=== PATIENT | female | born 1960 | race Caucasian/White ===

== ENCOUNTER 2020-03-09 01:13 | Emergency (ER) | payer SELFPAY ==
[~2020-03-09] VITALS: Ht 160 cm; Wt 63.5 kg
[2020-03-09 01:14] VITALS: BP 156/83
--- NOTE | 2020-03-09 01:14 | NUR ---
PT AMBUALTED TO [facility] WITH STEADY GAIT. PT ESCOTRED BY [facility].
--- NOTE | 2020-03-09 01:29 | NUR ---
NO NURSING INTERVENTION DONE DURING VISIT.
--- NOTE | 2020-03-09 01:29 | NUR ---
PATIENT BIB [facility]. PATIENT EXAMINED BY . PATIENT MEDICALLY CLEARED AND RELEASED IN CUSTODY IN STABLE CONDITION. ORIGINAL PRE-BOOK FORM GIVEN TO OFFICER [facility] #[id number].
--- NOTE | 2020-03-09 01:30 | NUR ---
Patient discharged with v/s stable. Written and verbal after care instructions given and explained. Patient verbalized understanding. Police with in custody. All questions addressed prior to discharge. Advised to follow up with [facility]D.
[2020-03-09 01:39] VITALS: BP 156/83
== END 2020-03-09 01:30 ==
LOC: MED 01:13
DX: Z02.89 Encounter for other administrative examinations (principal); V89.2XXA Person injured in unspecified motor-vehicle accident, traffic, initial encounter; Y93.89 Activity, other specified; Y92.89 Other specified places as the place of occurrence of the external cause; Y99.8 Other external cause status
CPT/HCPCS: 99283